=== PATIENT | male | born 1975 | race Caucasian/White ===

== ENCOUNTER 2017-08-19 11:57 | Inpatient (IN) | payer MEDICAID, OTHER ==
[2017-08-19] MEDS ORDERED: NS 1,000 ML IV ONE (12:05)
--- NOTE | 2017-08-19 12:06 | CPEKG ---
Heart Rate: 129 RR Interval: 465 P-R Interval: 124 QRSD Interval: 102 QT Interval: 328 QTC Interval: 481 P [place]: 57 QRS [place]: 85 T Wave [place]: 25 EKG Severity - BORDERLINE ECG - EKG Impression: SINUS TACHYCARDIA EKG Impression: BORDERLINE PROLONGED QT INTERVAL Electronically Signed By: Sera Batista 19-Aug-2017 13:56:46
--- NOTE | 2017-08-19 12:08 | EDPHY ---
H & P Stated Complaint: intentional OD, ativan and seroquel Time Seen by Provider: 08/19/17 12:00 HPI/ROS: CHIEF COMPLAINT: Intentional overdose of Ativan and Seroquel HISTORY OF PRESENT ILLNESS: 41-year-old male with a history of depression and prior suicide attempts presents after an intentional overdose. He got in an argument with his girlfriend this morning and took an overdose of medications, including Trileptal and Seroquel at 11:00am, one hour [employer]. Possibly took Ativan too. Girlfriend called 911 because he was unresponsive. On EMS arrival , he was responsive to painful stimuli, hypotensive and tachycardic. 2 IVs were established and he was given normal saline 250 mL IV. Narcan IV without change. Blood sugar normal. REVIEW OF SYSTEMS: complete 10 point ROS negative except at noted in the HPI - Personal History Current Tetanus Diphtheria and Acellular Pertussis (TDAP): Unsure - Medical/Surgical History Hx Asthma: No Hx Chronic Respiratory Disease: No Hx Diabetes: No Hx Cardiac Disease: No Hx Renal Disease: No Hx Cirrhosis: No Hx Alcoholism: No Hx HIV/AIDS: No Hx Splenectomy or Spleen Trauma: No Other PMH: depression - Social History Smoking Status: Never smoked - Physical Exam Exam: General Appearance: Drowsy, arouses to voice, speech is slow and slurred Eyes: Pupils equal and round, 3 mm, no conjunctival pallor or injection ENT, Mouth: Mucous membranes moist Neck: Normal inspection Respiratory: Lungs are clear to auscultation anteriorly Cardiovascular: Regular tachycardia Gastrointestinal: Abdomen is soft and nontender Neurological: Drowsy, follows most commands, nonfocal exam Skin: Warm and dry Extremities: Normal inspection Psychiatric: Flat affect Constitutional: Initial Vital Signs Heart Rate 135 H 08/19/17 12:01 Respiratory Rate 25 H 08/19/17 12:01 Blood Pressure 101/58 L 08/19/17 12:01 O2 Sat (%) 95 08/19/17 12:01 O2 Delivery Mode Room Air O2 (L/minute) 2 Allergies/Adverse Reactions: No Known Allergies Allergy (Unverified 08/19/17 12:01) Home Medications: Medication Instructions Recorded Gabapentin [Neurontin 300 MG (*)] 300 mg PO HS PRN 08/19/17 LORazepam [Ativan (*)] 0.5 mg PO DAILY PRN 08/19/17 OXcarbazepine [Trileptal 300mg (*)] 300 mg PO BID 08/19/17 QUEtiapine FUMARATE [Seroquel 100 100 - 200 mg PO HS 08/19/17 mg (*)] Medical Decision Making - Diagnostics EKG Interpretation: EKG interpreted by me reveals sinus tachycardia, rate 129, QT interval 0.4. Interpretation: Borderline EKG ED Course/Re-evaluation: This patient presents with drowsiness after an intentional overdose. On an M1 hold by PD. He is maintaining his airway now, with a normal respiratory rate and normal oxygen saturation on room air. IV NS 1 liter given; initially tachycardic with a heart rate in the 130s. Heart rate gradually declined after IV fluids. No charcoal given because of AMS. 1pm: remains drowsy, answers some questions, acknowledges girlfriend at bedside. On serial exams, patient's mental status remained stable and unchanged. He was maintaining his airway appropriately and blood pressure remained adequate. The hospitalist service was consulted for admission to the ICU. Differential Diagnosis: Altered mental status including but not limited to hypoglycemia, infectious process, electrolyte abnormality, head injury, CVA, and intoxicants. Critical Care Time: I spent a total of 40 minutes of critical care time in obtaining history, performing a physical exam, bedside monitoring of interventions, collecting and interpreting tests and discussion with consultants but not including time spent performing procedures. - Data Points Laboratory Results: Laboratory Results 08/19/17 12:03 08/19/17 12:03 08/19/17 08/19/17 08/19/17 12:07 12:07 12:05 WBC RBC Hgb POC Hgb 14.3 gm/dL gm/dL (13.7-17.5) Hct POC Hct 42 % % (40-51) MCV MCH MCHC RDW Plt Count MPV Neut % (Auto) Lymph % (Auto) Phillips % (Auto) Eos % (Auto) Baso % (Auto) Nucleat RBC Rel Count Absolute Neuts (auto) Absolute Lymphs (auto) Absolute Monos (auto) Absolute Eos (auto) Absolute Basos (auto) Absolute Nucleated RBC Immature Gran % Immature Gran # POC Sodium 140 mEq/L mEq/L (135-145) Sodium POC Potassium 3.3 mEq/L mEq/L (3.3-5.0) Potassium POC Chloride 103 mEq/L mEq/L (97-110) Chloride Carbon Dioxide Anion Gap POC BUN 15 mg/dL mg/dL (7-23) BUN Creatinine POC Creatinine 0.9 mg/dL mg/dL (0.7-1.3) Estimated GFR Glucose POC Glucose 156 mg/dL H mg/dL (70-100) Hemoglobin A1c Pending Estim Average Glucose Pending Calcium Magnesium 1.9 mg/dL mg/dL (1.6-2.3) Salicylates Acetaminophen Ethyl Alcohol 08/19/17 08/19/17 12:03 12:03 WBC 6.65 10^3/uL 10^3/uL (3.80-9.50) RBC 4.84 10^6/uL 10^6/uL (4.40-6.38) Hgb 14.5 g/dL g/dL (13.7-17.5) POC Hgb Hct 42.0 % % (40.0-51.0) POC Hct MCV 86.8 fL fL (81.5-99.8) MCH 30.0 pg pg (27.9-34.1) MCHC 34.5 g/dL g/dL (32.4-36.7) RDW 12.3 % % (11.5-15.2) Plt Count 223 10^3/uL 10^3/uL (150-400) MPV 9.8 fL fL (8.7-11.7) Neut % (Auto) 54.4 % % (39.3-74.2) Lymph % (Auto) 38.3 % % (15.0-45.0) Phillips % (Auto) 5.6 % % (4.5-13.0) Eos % (Auto) 1.1 % % (0.6-7.6) Baso % (Auto) 0.3 % % (0.3-1.7) Nucleat RBC Rel Count 0.0 % % (0.0-0.2) Absolute Neuts (auto) 3.62 10^3/uL 10^3/uL (1.70-6.50) Absolute Lymphs (auto) 2.55 10^3/uL 10^3/uL (1.00-3.00) Absolute Monos (auto) 0.37 10^3/uL 10^3/uL (0.30-0.80) Absolute Eos (auto) 0.07 10^3/uL 10^3/uL (0.03-0.40) Absolute Basos (auto) 0.02 10^3/uL 10^3/uL (0.02-0.10) Absolute Nucleated RBC 0.00 10^3/uL 10^3/uL (0-0.01) Immature Gran % 0.3 % % (0.0-1.1) Immature Gran # 0.02 10^3/uL 10^3/uL (0.00-0.10) POC Sodium Sodium 141 mEq/L mEq/L (135-145) POC Potassium Potassium 3.8 mEq/L mEq/L (3.5-5.2) POC Chloride Chloride 103 mEq/L mEq/L (97-110) Carbon Dioxide 23 mEq/l mEq/l (22-31) Anion Gap 15 mEq/L mEq/L (8-16) POC BUN BUN 14 mg/dL mg/dL (7-23) Creatinine 0.8 mg/dL mg/dL (0.7-1.3) POC Creatinine Estimated GFR > 60 Glucose 140 mg/dL H mg/dL (70-100) POC Glucose Hemoglobin A1c Estim Average Glucose Calcium 9.2 mg/dL mg/dL (8.5-10.4) Magnesium Salicylates < 1.0 mg/dL L mg/dL (2.0-20.0) Acetaminophen < 10 mcg/mL L mcg/mL (10-30) Ethyl Alcohol < 10 mg/dL mg/dL (0-10) Medications Given: Sodium Chloride (Ns) 1,000 mls @ 125 mls/hr IV CONT JACQUELINE Stop: 08/19/17 22:14 Last Admin: 08/19/17 14:44 Dose: 1,000 mls Discontinued Medications Sodium Chloride (Ns) 1,000 mls @ 0 mls/hr IV ONCE ONE; Wide Open PRN Reason: Protocol Stop: 08/19/17 12:06 Last Admin: 08/19/17 12:49 Dose: 1,000 mls Point of Care Test Results: 08/19/17 12:05 POC Sodium 140 POC Potassium 3.3 POC Chloride 103 POC BUN 15 POC Creatinine 0.9 POC Glucose 156 H Departure - Departure Disposition: [facility] Acute Clinical Impression: Intentional overdose of drug in tablet form Condition: Serious
[2017-08-19 12:10] LABS: PLATELET COUNT 223 10^3/uL (150-400)
[2017-08-19] MEDS ORDERED: ONDANSETRON DISINTEGRATING 4 MG TAB PO PRN (12:39)
[2017-08-19] MEDS ORDERED: LORazepam 2 MG/ML INJ IVP PRN (14:05)
[2017-08-19] MEDS ORDERED: NS 1,000 ML IV SCH (14:15)
--- NOTE | 2017-08-19 14:50 | GHP ---
[f rep st] HISTORY AND PHYSICAL DATE OF ADMISSION: 08/19/2017 CHIEF COMPLAINT: Medication overdose, suicidal attempt. HISTORY OF PRESENT ILLNESS: A 41-year-old male, history of depression, anxiety , chronic tinnitus, who was brought in after an intentional overdose. He has had prior suicide attempts, per Girlfriend. Most of history is obtained from her, given the patient is encephalopathic. They got into an argument this morning about money and he took an overdose of medications. In the ED, medication count was possibly 30 of Trileptal and 30 of Seroquel missing. Think he also took Ativan as well. He has been very stressed as he has not had a job in a couple years. 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 Denies illicit drug, and minimal alcohol use. Girlfriend states he took pills after an argument. However, the patient has a very well thought out and typed suicide letter. REVIEW OF SYSTEMS: Per Girlfriend, patient could not participate. PAST MEDICAL HISTORY: Anxiety, depression, chronic tinnitus. PAST SURGICAL HISTORY: None. SOCIAL HISTORY: Lives with Girlfriend in [place]. 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 Occasional alcohol. No tobacco or illicits. FAMILY HISTORY: Cannot obtain. HOME MEDICATIONS: Trileptal, Seroquel, gabapentin, Ativan, awaiting dosages. ALLERGIES: No known drug allergies. PHYSICAL EXAMINATION: VITAL SIGNS: Temperature 35.8, blood pressure 104/74, heart rate 103 to 129, respirations 12, 98% on 2 L. General: Somnolent, opens eyes to voice. HEENT: Pupils are pinpoint, but reactive. Dry mucous membranes. No oral lesions or ulcerations. CV: Tachy, but regular. No murmurs, gallops, or rubs. LUNGS: Clear anteriorly. ABDOMEN: Soft, nontender. No grimace with palpation. SKIN: Warm, dry. No ulcerations or rash. NEURO: Will open eyes to voice, will squeeze hands. Follows simple commands. PSYCH: He is alert, but not participating. LABS: WBC 6, hemoglobin 16, hematocrit 46, platelets 275. Sodium 140, potassium 3.3, chloride 103, BUN 15, creatinine is 0.9, glucose is 156. Negative salicylate, Tylenol and alcohol. EKG is personally reviewed by me, sinus tachycardia. ASSESSMENT/PLAN: 1. Suicide attempt/medication overdose: thought secondary to argument over money. However, the patient had a very thought out suicide note to family, coworkers. He is on a M1 hold. He is followed by [facility] and needs psych eval when medically clear. 2. Medication overdose: includes Ativan, Trileptal, Seroquel, unclear but suspect up to 30 each of the Trileptal and Seroquel. Utox pending. Monitor for QTc prolongation. Trileptal can cause serious reactions including Kirk- Jony syndrome and blood dyscrasias. No evidence of these now. We will monitor closely. 3. Tachycardia: Secondary to medication ingestion, dehydration. We will hydrate. Continue telemetry. 4. Diet: Regular, once mentation improves. 5. DVT prophylaxis: SCDs. DISPOSITION: Patient warrants observation admission in the ICU for intentional drug overdose and suicide attempt. He requires telemetry and TLC evaluation. /[id number]/MODL MTDD
--- NOTE | 2017-08-19 15:33 | ASMTCMCOM ---
CM Note CM Note Notes: Pt transported to the Emergency Department via EMS s/p an overdose/suicide attempt. Pt had an argument with his girlfriend this morning. Pt intentionally took medication (Seroquel, Trileptal and possibly Ativan) and appears to have had a well thought out plan that included suicide letters. Per MD notes, history includes anxiety, depression, chronic tinnitus and previous suicide attempts. Pt is on an M1 hold by [facility]. Pt lives in [place] with his girlfriend. He is an unemployed physicist. Most of the history was obtained from his girlfriend. Discharge needs remain unclear at this time. CM will continue to follow. Date Signed: 08/19/2017 03:32 PM Electronically Signed By:Rasheeda Mas RN
--- NOTE | 2017-08-20 08:52 | HOSPPROG ---
Hospitalist Progress Note Assessment/Plan: #Suicide attempt: had well thought out letter. Needs psych eval -supportive care, telemetry, IVFs #Medication overdose: Trileptal, Seroquel, Ativan -hemodynamically stable #Acute toxic encephalopathy: due to OD and cocaine #Cocaine use: HR stable #Tachycardia: resolved #Depression/anxiety: needs psych evaluation #Disp: warrants inpatient admission for cont telemetry. IVFs Subjective: still somnolent this morning Objective: Vital Signs Temp Pulse Resp BP Pulse Ox 35.8 C L 85 10 L 105/61 97 08/20/17 08:00 08/20/17 08:00 08/20/17 08:00 08/20/17 08:00 08/20/17 08:00 Laboratory Results 08/20/17 05:50 08/19/17 08/20/17 08/21/17 05:59 05:59 05:59 Intake Total 2150 Output Total 1050 Balance 1100 - Physical Exam Constitutional: other (somnolent. opens eyes to voice, but falls back to sleep) Ears, Nose, Mouth, Throat: dry mucous membranes, No no oral mucosal ulcers, No oral thrush Cardiovascular: regular rate and rhythym, no murmur, rub, or gallop Respiratory: no respiratory distress Gastrointestinal: normoactive bowel sounds, soft, non-tender abdomen Genitourinary: No no bladder tenderness Skin: warm Neurologic: CN II-XII Intact (alert to hospital, [place]. Mumbling, falls right back to sleep) ICD10 Worksheet Patient Problems: Problems Problem Status Onset Intentional overdose of drug in tablet form Acute
[2017-08-20] MEDS ORDERED: NS 1,000 ML IV SCH (09:00)
--- NOTE | 2017-08-20 10:08 | PDMN ---
Medical Necessity Medical necessity: C/M review: est. > 2 MN LOS for eval and TX of acute suicide attempt - patient had well thought out letter, intentional medication overdose - Trilepal. Seroquel, Ativan, acute toxic encephalopathy due to overdose and cocaine, tachycardia resolved, patient still somnolent 08/20/2017 AM requiring Psychiatric evaluation, ongoing M1 hold, IV fluids, cardiac monitoring, pulse oxmetry, supportive care, comorbid cocaine use, depression / anxiety per 08/20/2017 Hospitalist progress note.
--- NOTE | 2017-08-20 10:27 | GCON ---
[f rep st] CONSULTATION CRITICAL CARE CONSULT DATE OF CONSULTATION: 08/20/2017 HISTORY OF PRESENT ILLNESS: This patient is a 41-year-old male with a history of depression and prev ious suicide attempts with anxiety who was brought to the hospital after an intentional overdose. He apparently got into an argument with his girlfriend the day of admission and took an unknown quantit y of medications which probably included at least Trileptal, Seroquel, and potentially Ativan. His m ental status has been quite poor since arrival, and he has really been unable to provide any other de tails. Most of my information came from his chart. She brought with him a very detailed and typed o la suicide letter. REVIEW OF SYSTEMS: Otherwise negative. PAST MEDICAL HISTORY: Includes anxiety, depression, chronic tinnitus, and suicide attempts. PAST SURGICAL HISTORY: None. 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 FAMILY HISTORY: Unremarkable at this time. MEDICATIONS AT HOME: Include Trileptal, Seroquel, gabapentin, Ativan. PHYSICAL EXAMINATION: VITAL SIGNS: Today, he was afebrile. Blood pressure 105/61, heart rate of 85 , respirations 10, oxygen saturation 97% on room air. GENERAL: He was quite lethargic. Did not fol low any commands. Was nonverbal, though he did move all extremities spontaneously. HEENT: Pupils w ere equally round, reactive to light. Nonicteric and noninjected. Mucous membranes moist without er ythema or exudate. NECK: Supple without adenopathy or jugular vein distention. RESPIRATORY: Breat h sounds were clear to auscultation bilaterally without wheezes, rubs, or rales. HEART: Regular rat e and rhythm without obvious murmur. ABDOMEN: Soft, nontender, nondistended without hepatosplenomeg amy. EXTREMITIES: No clubbing, cyanosis, or edema. NEUROLOGICAL: Other than the lethargy, his john rological exam was nonfocal, including cranial nerves. SKIN: Warm and dry without evidence of rash. OBJECTIVE DATA: Includes labs from yesterday with normal CBC and basic metabolic panel. Glucose was only 140. Toxicology screen shows only cocaine. His alcohol level was normal. ASSESSMENT AND PLAN: 1. Suicide attempt with polysubstance ingestion. Appears to be relatively stable at this point from both cardio and pulmonary perspectives. Continued observation for now and wait for this to clear. 2. Suicide attempt. This looks like a clear attempt on his part, and he is currently on an M1 hold and will require further psychiatric evaluation. /[id number]/MODL
[2017-08-20] MEDS: ONDANSETRON 4 MG/2 ML VIAL IVP PRN ×2 (16:19→21:17)
[2017-08-21] MEDS: ONDANSETRON 4 MG/2 ML VIAL IVP PRN ×2 (01:59→09:17)
--- NOTE | 2017-08-21 13:28 | HOSPPROG ---
Hospitalist Progress Note Assessment/Plan: #Suicide attempt: had well thought out letter. h/o depression/anxiety, but may be schizoaffective given some of thought patterns -needs inpatient psych -supportive care, telemetry, IVFs #Medication overdose: Trileptal, Seroquel, Ativan -hemodynamically stable #Urinary retention: due to psych meds. Straight cath if >500cc #Acute toxic encephalopathy: nearly resolved. Due to OD and cocaine #Cocaine use: HR stable #Tachycardia: resolved #Disp: warrants inpatient admission for cont telemetry, M1 hold and urinary retention Subjective: dizzy with standing Objective: Vital Signs Temp Pulse Resp BP Pulse Ox 36.8 C 88 16 123/71 H 93 08/21/17 11:59 08/21/17 11:59 08/21/17 11:59 08/21/17 11:59 08/21/17 11:59 Laboratory Results 08/20/17 05:50 08/20/17 08/21/17 08/22/17 05:59 05:59 05:59 Intake Total 2150 1751 Output Total 1050 1050 Balance 1100 701 - Physical Exam Constitutional: other (still very somnolent) Eyes: PERRL Ears, Nose, Mouth, Throat: dry mucous membranes, No no oral mucosal ulcers Cardiovascular: regular rate and rhythym, no murmur, rub, or gallop Respiratory: no respiratory distress, no rales or rhonchi Gastrointestinal: normoactive bowel sounds, soft, non-tender abdomen Genitourinary: no bladder fullness Skin: No erythema, No rash Neurologic: CN II-XII Intact (alert to self and place. Fall asleep very quickly. Not participating in interview) ICD10 Worksheet Patient Problems: Problems Problem Status Onset Intentional overdose of drug in tablet form Acute
[2017-08-21] MEDS ORDERED: QUEtiapine FUMARATE 100 MG TAB PO SCH (21:00)
[2017-08-21] MEDS ORDERED: OXcarbazepine 300 MG TAB PO SCH (21:00)
[2017-08-22] MEDS: ACETAMINOPHEN 325 MG TAB PO PRN ×3 (03:16→21:29)
[2017-08-22] MEDS ORDERED: MULTIVITAMINS 1 EACH TAB PO SCH (09:00)
[2017-08-22] MEDS: ONDANSETRON 4 MG/2 ML VIAL IVP PRN (11:06)
--- NOTE | 2017-08-22 15:05 | GDS ---
[f rep st] DISCHARGE SUMMARY DISCHARGE DIAGNOSES: Medication overdose, suicide attempt, history of anxiety, depression, chronic tinnitus, urinary retention. HISTORY OF PRESENT ILLNESS: A 41-year-old male with history of anxiety, depression, chronic tinnitus, who was brought in after an intentional overdose. Per his girlfriend, he has had prior suicide attempts. They got in an argument the morning of admission, about money and his girlfriend found him to be confused. He took up to 30 Trileptal and 30 of Seroquel and possibly Ativan. The patient did have a very well thought out, typed suicide letter. HOSPITAL COURSE: 1. Suicide attempt/medication overdose: wrote a well-thought out letter to family. Placed on an M1. He is medically cleared and needs to be evaluated by TLC and inpatient psych treatment. 2. Medication overdose, included Ativan, Trileptal, Seroquel. Monitor on telemetry for QT prolongation. No evidence of skin involvement, Kirk- Jony that can be a side effect of Trileptal. 3. Tachycardia: due to medication ingestion, cocaine. Resolved with IVFs. 4. Urinary retention: from medication overdose. Now urinating on own. DISPOSITION: Patient is stable for discharge home. MEDICATIONS: Resume home psych medications and will defer to inpatient psych team. PHYSICAL EXAMINATION: VITAL SIGNS: Today, temperature 37.6, blood pressure 115 /72, heart rate 70s, respirations 15, 94% on room air. GENERAL: Sitting up, eyes open, eating lunch. No acute distress. HEENT: PERRLA. Dry mucous membranes. CV: Regular rate and rhythm and rhythm. No murmurs, gallops, or rubs. LUNGS: Clear. : No Wilde. MUSCULOSKELETAL: Moving all 4 extremities. NEUROLOGIC: 2 through 12 intact. PSYCH: Alert and oriented x3, flat but answering appropriately. /[id number]/MODL Time spent on DC> 35 min coordinating DC with [facility], case management. GARCÍA
--- NOTE | 2017-08-22 16:06 | ASMTCMCOM ---
CM Note CM Note Notes: Patient has been medically cleared for mental health eval. [facility] looking for in-pt placement. Date Signed: 08/22/2017 04:06 PM Electronically Signed By:Samantha Yung LCSW
[2017-08-22 21:20] VITALS: BP 126/69
--- NOTE | 2017-08-25 12:06 | PQFORM ---
PHYSICIAN QUERY FORM Needs Your Response This query form is being sent to you to assure this patient record is coded properly. Please respond to the question below: CLIENT RESOLUTION SPECIALIST QUESTION: Dear Dr. Valenzuela, In reviewing this patients medical record, it is noted patient had the diagnosis of 'Acute toxic encephalopathy.' Patient was noted to be "encephalopathic" in the H&P. Noted in the Medical Necessity note dated 08/20 patient was diagnosed with "Acute toxic encephalopathy due to overdose and cocaine." In the 08/21 Hospitalist progress notes patient was also diagnosed with "Acute toxic encephalopathy due to OD and cocaine." After study, should the diagnosis of "acute toxic encephalopathy, present on admission" be included in the discharge summary?? x Yes No Unable to determine other more appropriate diagnosis Thank you GIOVANNI Salas HIM/Coding Dept. [phone] INSTRUCTIONS FOR RESPONSE: Answer question by clicking on the "Edit Document" button. Move cursor to area below the stars. When complete, hit "Save." Click on the "Sign" button, then click "Sign" again. Type in your PIN and hit "Enter." MTDD
== END 2017-08-22 22:14 | disposition home or self-care (01) | DRG 817 ==
LOC: EDUNIT# → INTOOBSV 12:18 → EEVIPCON 12:18 → OBSVTOIN 12:18 → F2N 13:44
PROVIDERS: ADMIT Internal Medicine; ATTEND Internal Medicine
DX: T43.592A Poisoning by other antipsychotics and neuroleptics, intentional self-harm, initial encounter (principal); G92 Toxic encephalopathy; E86.0 Dehydration; F41.9 Anxiety disorder, unspecified; F14.90 Cocaine use, unspecified, uncomplicated; R00.0 Tachycardia, unspecified; R33.9 Retention of urine, unspecified; F32.9 Major depressive disorder, single episode, unspecified; H93.19 Tinnitus, unspecified ear
CPT/HCPCS: 80305; 82947-QW; 97161-GP; 97530-GP; G0378; G0480; J2405

== ENCOUNTER 2017-08-22 22:30 | Inpatient (IN) | payer MEDICAID ==
[2017-08-22] MEDS ORDERED: MAGNESIUM HYDROXIDE 30 ML UDCUP PO PRN (23:16)
[2017-08-22] MEDS ORDERED: MAG HYDROX/AL HYDROX/SIMETH 30 ML UDCUP PO PRN (23:16)
[2017-08-22] MEDS ORDERED: ACETAMINOPHEN 325 MG TAB PO PRN (23:17)
[2017-08-22] MEDS ORDERED: LORazepam 0.5 MG TAB PO PRN (23:17)
[2017-08-22] MEDS ORDERED: OLANZapine 5 MG TAB PO PRN (23:18)
[2017-08-23] MEDS ORDERED: FAMOTIDINE 20 MG TAB PO PRN (11:14)
[2017-08-23] MEDS ORDERED: LORazepam 0.5 MG TAB PO PRN (11:16)
[2017-08-23] MEDS ORDERED: QUEtiapine FUMARATE 50 MG TAB PO PRN (11:22)
[2017-08-23] MEDS: LITHIUM CARBONATE ER 450 MG TAB PO SCH (11:54)
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
--- NOTE | 2017-08-23 15:45 | BCON ---
[f rep st] BEHAVIORAL HEALTH CONSULTATION INTERNAL MEDICINE CONSULTATION. DATE OF CONSULTATION: 08/23/2017 REFERRING PHYSICIAN: Dr. Aly REASON FOR REFERRAL: Medical clearance for inpatient behavioral [facility] stay. HISTORY OF PRESENT ILLNESS: This patient was admitted to [facility] on 08/19/2017 with an intentional overdose on oxcarbazepine and quetiapine as well as possibly lorazepam following an argument with his girlfriend. She had called 911 because he was nonresponsive. He was initially admitted to the ICU. He had a borderline prolonged QT interval on EKG, but this did not persist on subsequent monitoring in the ICU. He was otherwise medically stable and appropriate for transfer to inpatient [facility]. He currently is without any acute complaints. PAST MEDICAL HISTORY: 1. Depression. 2. Obstructive sleep apnea, which he reports resolved when his vitamin D deficiency was treated. 3. Vitamin D deficiency. PAST SURGICAL HISTORY: He denies any history of any surgeries. MEDICATIONS: Prior to admission 1. Gabapentin 300 mg p.o. q.h.s. p.r.n. 2. Lorazepam 0.5 mg p.o. daily p.r.n. 3. Oxcarbazepine 300 mg p.o. b.i.d. 4. Quetiapine 100-200 mg p.o. q.h.s. SOCIAL HISTORY: He is currently unemployed. He lives with his common-law . He has a PhD in physics. He is a nonsmoker and a nondrinker. FAMILY HISTORY: He denies any history of illnesses in his parents. REVIEW OF SYSTEMS: He reports that he is still feeling somewhat tired, but almost normal and does not note any other effects of the overdose. He denies recent weight change, cough or dyspnea, nausea or vomiting. He does report constipation. Otherwise a 10-point review of systems is negative. PHYSICAL EXAM: VITALS: Blood pressure is 119/80, heart rate is 77, respiratory rate is 16, oxygen saturation is 93% on room air, temperature is 37 degrees. His weight is 62 kg for a body mass index of 19.1. GENERAL: This is a well-nourished, well-developed man who appears his chronologic age. Cooperative and in no acute distress. HEENT: Extraocular movements are intact. Pupils are equal, round, reactive to light. Mucous membranes are moist. He has an uncrowded airway, Mallampati class 1. NECK: Supple. HEART: There is a regular rate and rhythm with no murmurs, rubs, or gallops. LUNGS: Clear to auscultation bilaterally. ABDOMEN: Benign. NEUROLOGIC: He is alert and oriented x3. Cranial nerves 2-12 are grossly intact. There is no focal weakness and sensation is intact to light touch. LABORATORY STUDIES: Most recently from the hospital, CBC was completely within normal limits. Serum chemistry on 08/20 was overall normal, but for a low creatinine at 0.6 and a low calcium at 7.8. Hemoglobin A1c was 5.4. Toxicology screen in the serum was negative for salicylates, acetaminophen, or ethyl alcohol. Toxicology screen in the urine was non-negative for cocaine, but otherwise negative for any substances of abuse. ASSESSMENT/RECOMMENDATIONS: 1. Mental health issues pending further evaluation and management per Psychiatry and the mental health team. 2. Intentional overdose. He has not suffered any long-term effects of it and there is no further specific evaluation indicated. 3. Constipation. On reviewing his medications I see that milk of magnesia has been prescribed and this should be adequate. I see no medical contraindications to this patient's continued stay on the inpatient behavioral health unit or to any psychiatric medications or procedures. Thank you very much for including me in the care of this patient and please do not hesitate to contact me or the hospitalist service should there be need for further medical evaluation. /[id number]/MODL MTDD
[2017-08-23] MEDS: QUEtiapine FUMARATE 50 MG TAB PO SCH (21:07)
[2017-08-24] MEDS: OMEGA-3 FATTY ACIDS 1,000 MG CAP PO SCH (08:06)
[2017-08-24] MEDS: LITHIUM CARBONATE ER 450 MG TAB PO SCH ×2 (08:06→21:09)
[2017-08-24] MEDS: CHOLECALCIFEROL VIT D3 2,000 UNITS TAB/CAP PO SCH (08:06)
[2017-08-24 08:24] LABS: CREATINE KINASE < 20 IU/L (0-224)
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
--- NOTE | 2017-08-24 17:20 | SOAPPROG ---
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 Advise evaluation by grooving lathe tender after discharge. Advised that he could probably ride a bicycle rather than run without exacerbating symptoms. 08/24/17 17:19 Subjective: Patient reports pain and a sensation of a mass that clicks in his forefoot bilateral. He has noticed this after he began running to improve his health, which he had been doing for approximately year. He reports he needs to cut a piece out of the interior sole of the running shoe to leave extra space and that he intentionally uses inexpensive running shoes so that he can do this. Objective: Vital Signs Temp Pulse Resp BP Pulse Ox 36.8 C 78 14 119/73 94 08/24/17 06:00 08/24/17 06:00 08/24/17 06:00 08/24/17 06:00 08/24/17 06:00 Laboratory Results 08/24/17 06:00 Physical Exam - Physical Exam General Appearance: WD/WN, alert, no apparent distress Extremities: other (Demonstrates clicking bilaterally in the forefoot as he changes forefoot pressure on the ground.) ICD10 Worksheet Patient Problems: Problems Problem Status Onset Bipolar disorder with psychotic features Acute Posttraumatic stress disorder Acute Intentional overdose of drug in tablet form Acute Vitamin D deficiency Acute
[2017-08-24] MEDS: QUEtiapine FUMARATE 50 MG TAB PO SCH (21:09)
[2017-08-25] MEDS: LITHIUM CARBONATE ER 450 MG TAB PO SCH ×2 (07:59→20:56)
[2017-08-25] MEDS: OMEGA-3 FATTY ACIDS 1,000 MG CAP PO SCH ×2 (07:59→20:56)
[2017-08-25] MEDS: CHOLECALCIFEROL VIT D3 2,000 UNITS TAB/CAP PO SCH (07:59)
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
[2017-08-25] MEDS: QUEtiapine FUMARATE 50 MG TAB PO SCH (20:57)
[2017-08-26] MEDS: LITHIUM CARBONATE ER 450 MG TAB PO SCH ×2 (08:25→20:45)
[2017-08-26] MEDS: CHOLECALCIFEROL VIT D3 2,000 UNITS TAB/CAP PO SCH (08:25)
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
[2017-08-26] MEDS: QUEtiapine FUMARATE 50 MG TAB PO SCH (20:44)
[2017-08-26] MEDS: OMEGA-3 FATTY ACIDS 1,000 MG CAP PO SCH (20:45)
[2017-08-27] MEDS: LITHIUM CARBONATE ER 450 MG TAB PO SCH ×2 (09:03→20:41)
[2017-08-27] MEDS: CHOLECALCIFEROL VIT D3 2,000 UNITS TAB/CAP PO SCH (09:03)
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
[2017-08-27] MEDS: QUEtiapine FUMARATE 50 MG TAB PO SCH (20:41)
[2017-08-27] MEDS: OMEGA-3 FATTY ACIDS 1,000 MG CAP PO SCH (20:41)
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
[2017-08-28] MEDS: CHOLECALCIFEROL VIT D3 2,000 UNITS TAB/CAP PO SCH (08:12)
[2017-08-28] MEDS: LITHIUM CARBONATE 300 MG CAP PO SCH ×2 (08:12→21:36)
[2017-08-28] MEDS: QUEtiapine FUMARATE 50 MG TAB PO SCH (21:37)
[2017-08-28] MEDS: OMEGA-3 FATTY ACIDS 1,000 MG CAP PO SCH (21:37)
[2017-08-29] MEDS: CHOLECALCIFEROL VIT D3 2,000 UNITS TAB/CAP PO SCH (08:42)
[2017-08-29] MEDS: LITHIUM CARBONATE 300 MG CAP PO SCH ×2 (08:42→21:19)
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
[2017-08-29] MEDS: OMEGA-3 FATTY ACIDS 1,000 MG CAP PO SCH (21:19)
[2017-08-29] MEDS: QUEtiapine FUMARATE 50 MG TAB PO SCH (21:19)
[2017-08-30] MEDS: CHOLECALCIFEROL VIT D3 2,000 UNITS TAB/CAP PO SCH (08:33)
[2017-08-30] MEDS: LITHIUM CARBONATE 300 MG CAP PO SCH ×2 (08:33→21:12)
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
[2017-08-30] MEDS: OMEGA-3 FATTY ACIDS 1,000 MG CAP PO SCH (21:12)
[2017-08-30] MEDS: QUEtiapine FUMARATE 50 MG TAB PO SCH (21:13)
[2017-08-31 07:02] VITALS: BP 117/62
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
[2017-08-31] MEDS: CHOLECALCIFEROL VIT D3 2,000 UNITS TAB/CAP PO SCH (08:54)
[2017-08-31] MEDS: LITHIUM CARBONATE 300 MG CAP PO SCH (08:54)
== END 2017-08-31 14:25 | DRG 885 ==
LOC: BBEH 22:30 → UNDOADMIN 22:30 → UNDODISIN 08-31 14:25
PROVIDERS: ADMIT Psychiatry & Neurology Behavioral Neurology & Neuropsychiatry
DX: F31.5 Bipolar disorder, current episode depressed, severe, with psychotic features (principal); F43.10 Post-traumatic stress disorder, unspecified